=== PATIENT | male | born 1990 | race Caucasian/White ===

== ENCOUNTER 2017-01-28 23:03 | Emergency (ER) | payer BC ==
--- NOTE | 2017-01-30 07:39 | ER ---
ADMIT: 01/28/2017 RM/LOC: ER [facility] MR#: [id number] [address] [id number] VICTORINA BALDWIN [address] [place] [id number] Emergency Room Report SEX: M AGE: 26 : 1990 DATE: 01/28/2017 HISTORY OF PRESENT ILLNESS: The patient is a 26-year-old male with past medical history of cell disease, who came to the ER, sent by Dr. Diaz, telephone lineman, because the patient had chief complaint of photophobia on the right eye, redness, right eye pain, and clear discharge from the right eye. The patient's symptom has been there for one day. The patient also states that he had blurred vision on the right eye. In the ER, the patient is in no obvious distress, sitting in the chair with right red eye. The patient denies any trauma and denies welding or any exposure to UV light for the last 2 weeks. PHYSICAL EXAMINATION: The patient had erythema on the sclera of the right eye, more on the lateral part. There is some also conjunctivae injection on the right eye. Extraocular movements are normal. The patient had normal reactive pupils. Staining of the eye with fluorescein strip did not show any corneal abrasion or lacerations. There is no optic and Srinivasan sign is negative. I did not see any foreign bodies in the eye or under the upper and lower eyelids. There is no lesion in the eyelids too. Intraocular pressure on the right eye was 19 mmHg. A slit lamp exam of the right eye, I did not see any cell or flare in the anterior chamber. The rest of the examination was noncontributory. , loin puller, was contacted and after examining the patient with diagnosis of scleritis, the patient was discharged to home with corticosteroid ophthalmic. Humble Farivar, MD/ veto JOB #: [id number] CC: Humble Medina MD, Attending Physician UNKNOWN, Family Physician
--- NOTE | 2017-02-01 08:06 | CO ---
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 He also has psoriasis. He is on prednisone and Enbrel, but last Tuesday missed his dose of Enbrel because his prescription ran out. He then on morning developed a 2-day history of severe eye pain and redness on the right with light sensitivity. He has no decreased vision. No discharge, though he is having some tearing. He has no floaters. He called his semiconductor packages leak tester, Dr. Diaz last night because he was concerned about the eye pain and Dr. Diaz discussed him with me and I advised that I should see him. Dr. Diaz did tell the patient to go ahead and take 40 mg of prednisone prior to heading off to the ER, and by the time he got to the emergency room about 1-1/2 to 2 hours later, his pain had improved significantly. REVIEW OF SYSTEMS: He has no other stomach pains, joint pain, or rash. He states that he is actually doing very well with his ASD. PAST MEDICAL HISTORY: Significant for adult-onset Still's disease, previously diagnosis of juvenile rheumatoid arthritis. He also has a history of psoriasis. 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 MEDICATIONS: 1. Enbrel. 2. Prednisone. He is on 6 mg of prednisone currently. ALLERGIES: HE HAS NO KNOWN DRUG ALLERGIES. PAST SURGICAL HISTORY: Heart ablation. PAST OCULAR HISTORY: Negative. He was checked regularly due to his juvenile rheumatoid arthritis, but was never diagnosed with uveitis. OCULA EXAMINATIOM On ocular examination, his visual acuity is 20/20 in each eye. His pupils are 4 mm, 2+, reaction to light. No afferent pupillary defect. Motility shows orthophoria with full ductions and versions. His visual field to confrontation is full. His external examination shows normal lids with no foreign bodies with lid eversion. Slit lamp examination shows 3+ injection and boggy. Sclerae temporally on the right, which does not really appear nodular, but is somewhat sectoral. It does not clara with phenylephrine topically. The left conjunctiva looks normal. The cornea is clear in both eyes. The anterior chamber is deep and quiet. The iris is normal. The lens is clear. The pressures are 12 and 13. The fundus examination after dilation shows a clear vitreous, normal nerve and macula and normal periphery. 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 PLAN: Durezol one drop in the right eye 4 times a day. Enbrel on Tuesday as planned. I discussed with Dr. Diaz about his steroid and systemic anti- inflammatory meds, he recommended prednisone 40 mg p.o. daily for 3 days, 30 mg p.o. daily for 3 days and then 20 mg. If he is quiet on Tuesday, then he could stop the higher doses and go back to 6 mg since his Enbrel should have worked by then. I plan to see him back on Tuesday in my office, but sooner if he has pain, decreased vision, increased light and sensitivity or worsening vision. Yisel Lazaro MD/ veto JOB #: [id number] CC: Humble Medina MD, Attending Physician Jonas Diaz MD, Family Physician
== END 2017-01-29 08:10 | disposition home or self-care (01) ==
LOC: ER 23:03
DX: H15.001 Unspecified scleritis, right eye (principal); Z79.899 Other long term (current) drug therapy